=== PATIENT | female | born 1965 | race African-American/Black ===

== ENCOUNTER → 2017-04-28 | Outpatient (CLI) | payer MEDICARE, OTHER ==
--- NOTE | 2017-05-01 12:39 | RAD ---
DATE: 04/28/2017 EXAM: DIGITAL SCREEN BILAT W/CAD HISTORY: Routine screening COMPARISON: 11/17/2014 This study was interpreted with the benefit of Computerized Aided Detection (CAD). The breast parenchyma shows scattered fibroglandular densities. Breast parenchyma level B. FINDINGS: No new or enlarging breast densities are seen. No suspicious microcalcifications are evident. IMPRESSION: Stable mammograms without evidence of malignancy. BI-RADS CATEGORY: 1 NEGATIVE RECOMMENDED FOLLOW-UP: 12M 12 MONTH FOLLOW-UP PQRS compliance statement: Patient information was entered into a reminder system with a target due date for the next mammogram. Mammography is a sensitive method for finding small breast cancers, but it does not detect them all and is not a substitute for careful clinical examination. A negative mammogram does not negate a clinically suspicious finding and should not result in delay in biopsying a clinically suspicious abnormality. "Our facility is accredited by the [employer] Mammography [employer]."
== END | disposition home or self-care (01) ==
LOC: MAMMO 07:39
PROVIDERS: ATTEND Family Medicine
DX: Z12.31 Encounter for screening mammogram for malignant neoplasm of breast (principal)
CPT/HCPCS: G0202; 77067

== ENCOUNTER 2017-09-12 10:36 | Emergency (ER) | payer MEDICARE, OTHER | END 2017-09-12 11:26 | disposition home or self-care (01) | LOC: ER 10:36 | DX: J20.9 Acute bronchitis, unspecified (principal); F17.200 Nicotine dependence, unspecified, uncomplicated | CPT/HCPCS: 99283 ==

== ENCOUNTER 2018-01-24 17:29 | Emergency (ER) | payer MEDICARE, OTHER ==
[2018-01-24] MEDS: diphenhydrAMINE HCL 25 MG CAPSULE PO (18:26)
== END 2018-01-24 18:27 | disposition home or self-care (01) ==
LOC: ER 17:29
DX: R21 Rash and other nonspecific skin eruption (principal); K21.9 Gastro-esophageal reflux disease without esophagitis
CPT/HCPCS: 99283; Q0163

== ENCOUNTER → 2018-12-13 | Outpatient (CLI) | payer MEDICARE, OTHER ==
[2018-01-24 17:39] VITALS: BP 116/70
[~2018-12-13] MED LIST: AZIT250T6 PO; BENZ100C PO; METH4TAB2 PO; PRED-220 PO
--- NOTE | 2018-12-13 09:35 | RAD ---
DATE: 12/13/2018 EXAM: DIGITAL SCREEN BILAT W/CAD HISTORY: Routine screening COMPARISON: 04/28/2017 This study was interpreted with the benefit of Computerized Aided Detection (CAD). Breast Density: SCATTERED The breast parenchyma shows scattered fibroglandular densities. Breast parenchyma level B. FINDINGS: No mass or suspicious microcalcifications are evident. IMPRESSION: Stable mammograms without evidence of malignancy. BI-RADS CATEGORY: 1 NEGATIVE RECOMMENDED FOLLOW-UP: 12M 12 MONTH FOLLOW-UP PQRS compliance statement: Patient information was entered into a reminder system with a target due date for the next mammogram. Mammography is a sensitive method for finding small breast cancers, but it does not detect them all and is not a substitute for careful clinical examination. A negative mammogram does not negate a clinically suspicious finding and should not result in delay in biopsying a clinically suspicious abnormality. "Our facility is accredited by the [employer] Mammography [employer]."
== END | disposition home or self-care (01) ==
LOC: MAMMO 08:04
PROVIDERS: ATTEND Family Medicine
DX: Z12.31 Encounter for screening mammogram for malignant neoplasm of breast (principal)
CPT/HCPCS: 77067

== ENCOUNTER 2019-02-16 23:29 | Emergency (ER) | payer OTHER ==
[~2019-02-16] VITALS: Ht 149.9 cm; Wt 58.1 kg
[2019-02-17] VITALS: BP 128/96
[2019-02-17] MEDS ORDERED: METH4TAB2 PO (00:32)
--- NOTE | 2019-02-17 00:33 | PHYS DOC ---
Past Medical History Past Medical History: GERD, Other Additional Past Medical Histor: "bowel problem" "Problem with my thyroid" Past Surgical History: Hysterectomy, Tubal ligation Alcohol Use: None Drug Use: None Adult General Chief Complaint Chief Complaint: SORE THROAT HPI HPI Patient is a 53 year old AA female who presents to the emergency Department today with complaints of sore throat, frequent throat clearing, pressure in her ears, dry cough, and nasal congestion for the last 3 or 4 days. Patient denies any fever, abdominal pain, nausea, vomiting, diarrhea, chest pain, shortness of breath, or wheezing. She states that she usually experiences symptoms similar to this one or 2 times a year. She currently rates her pain a 5 out of 10 on the pain scale and describes it as pressure, there are no alleviating or exacerbating factors. Review of Systems Review of Systems Constitutional: Denies fever or chills [] Eyes: Denies change in visual acuity, redness, or eye pain [] HENT: See history of present illness Respiratory: Denies wheezing or shortness of breath; reports dry cough[] Cardiovascular: No additional information not addressed in HPI [] GI: Denies abdominal pain, nausea, vomiting, or diarrhea [] Musculoskeletal: Denies back pain or joint pain [] Integument: Denies rash or skin lesions [] Neurologic: Denies headache, focal weakness or sensory changes [] Complete systems were reviewed and found to be within normal limits, except as documented in this note. Allergies Allergies Allergies Coded Allergies Type Severity Reaction Last Updated Verified No Known Drug Allergies 01/24/18 No Physical Exam Physical Exam Constitutional: Well developed, well nourished, no acute distress, non-toxic appearance. [] HENT: Normocephalic, atraumatic, bilateral external ears normal, cobblestone appearance of posterior pharynx, oropharynx moist, no oral exudates, nasal turbinates edematous and erythematous, no maxillary or frontal sinus tenderness to palpation Eyes: PERRLA, conjunctiva normal, no discharge. [] Neck: Normal range of motion, no tenderness, supple, no stridor. [] Cardiovascular:Heart rate regular rhythm, no murmur [] Lungs & Thorax: Bilateral breath sounds clear to auscultation [] Skin: Warm, dry, no erythema, no rash. [] Extremities: No cyanosis, ROM intact, Neurologic: Alert and oriented X 3, no focal deficits noted. [] Psychologic: Affect normal, judgement normal, mood normal. [] Current Patient Data Vital Signs Vital Signs Date Time Temp Pulse Resp B/P (MAP) Pulse Ox O2 Delivery O2 Flow Rate FiO2 02/17/19 00:00 98.3 63 16 128/96 (107) 100 Room Air 98.3 EKG EKG [] Radiology/Procedures Radiology/Procedures [] Course & Med Decision Making Course & Med Decision Making Pertinent Labs and Imaging studies reviewed. (See chart for details) dx: Allergic rhinitis, pharyngitis Prescription for Medrol Dosepak. Patient encouraged to take a daily Claritin, Zyrtec, or Megan. Encouraged patient to stop smoking. Avoid exposure to airway irritants. Increase clear fluids. Follow-up with your primary care doctor if symptoms persist, return to the ER if symptoms worsen. Recommend warm salt water gargles as needed for throat discomfort. Also may take Tylenol or ibuprofen as needed for pain. Patient verbalized an understanding of home care, medications, follow-up, and return to ED instructions and was in agreement with the plan of care. [] Dragon Disclaimer Dragon Disclaimer This electronic medical record was generated, in whole or in part, using a voice recognition dictation system. Departure Departure Impression: Primary Impression: Allergic rhinitis Additional Impression: Pharyngitis Disposition: 01 HOME, SELF-CARE Condition: STABLE Referrals: GUILLERMO BONNER MD (PCP) Patient Instructions: Allergic Rhinitis Additional Instructions: Fill prescription(s) and use as directed. Tylenol or ibuprofen prn pain/fever. Warm salt water gargles as needed for throat discomfort. Increase clear fluids. Recommend he take a daily Megan, Claritin, or Zyrtec to help with your symptoms.Avoid triggers such as smoke, fragrance, dust, and pollen. Stop smoking. Follow-up with your primary care doctor if symptoms persist, return to the ER if symptoms worsen. Scripts Methylprednisolone (MEDROL) 4 Mg Tab.ds.pk 1 PKG PO UD, #1 PKG 0 Refills Prov: ODETTE LEIGH Sue [employer] 02/17/19 Problem Qualifiers Primary Impression: Allergic rhinitis Allergic rhinitis trigger: unspecified Allergic rhinitis seasonality: unspecified Qualified Codes: J30.9 - Allergic rhinitis, unspecified Additional Impression: Pharyngitis Pharyngitis/tonsillitis etiology: unspecified etiology Qualified Codes: J02.9 - Acute pharyngitis, unspecified ODETTE LEIGH [employer] Feb 17, 2019 00:32
== END 2019-02-17 01:20 | disposition home or self-care (01) ==
LOC: ER 23:29
DX: J30.9 Allergic rhinitis, unspecified (principal); J02.9 Acute pharyngitis, unspecified; K21.9 Gastro-esophageal reflux disease without esophagitis
CPT/HCPCS: 99283

== ENCOUNTER 2019-06-01 17:44 | Emergency (ER) | payer OTHER ==
[~2019-06-01] VITALS: Ht 149.9 cm; Wt 58.1 kg
[2019-06-01 17:55] VITALS: BP 138/84
--- NOTE | 2019-06-01 18:07 | PHYS DOC ---
Past Medical History Past Medical History: GERD, UTI, Other Additional Past Medical Histor: "bowel problem" "Problem with my thyroid" (EBENEZER AGUAYO APRN) Past Surgical History: Hysterectomy, Tubal ligation (EBENEZER AGUAYO APRN) Alcohol Use: None Drug Use: None (EBENEZER AGUAYO APRN) Attending Signature I have participated in the care of this patient and I have reviewed and agree with all pertinent clinical information above including history, exam, and recommendations. (MARIA EUGENIA KEMP MD) Adult General Chief Complaint Chief Complaint: PAIN ON URINATION HPI HPI Patient is a 53 year old female who presents with dysuria that began 4 days ago. Patient is also complaining of foul odor vaginal discharge but states she is not concerned about STDs and does not want a pelvic. Denies any fever, nausea, vomiting. (EBENEZER AGUAYO APRN) Review of Systems Review of Systems Constitutional: Denies fever or chills [] Eyes: Denies change in visual acuity, redness, or eye pain [] HENT: Denies nasal congestion or sore throat [] Respiratory: Denies cough or shortness of breath [] Cardiovascular: No additional information not addressed in HPI [] GI: Denies abdominal pain, nausea, vomiting, bloody stools or diarrhea [] : Reports dysuria and vaginal discharge, denies hematuria [] Musculoskeletal: Denies back pain or joint pain [] Integument: Denies rash or skin lesions [] Neurologic: Denies headache, focal weakness or sensory changes [] All other systems were reviewed and found to be within normal limits, except as documented in this note. (EBENEZER AGUAYO APRN) Allergies Allergies Allergies Coded Allergies Type Severity Reaction Last Updated Verified No Known Drug Allergies 01/24/18 No (MARIA EUGENIA KEMP MD) Physical Exam Physical Exam Constitutional: Well developed, well nourished, no acute distress, non-toxic appearance. [] HENT: Normocephalic, atraumatic, bilateral external ears normal, oropharynx moist, no oral exudates, nose normal. [] Eyes: PERRLA, EOMI, conjunctiva normal, no discharge. [] Neck: Normal range of motion, no tenderness, supple, no stridor. [] Cardiovascular:Heart rate regular rhythm, no murmur [] Lungs & Thorax: Bilateral breath sounds clear to auscultation [] Abdomen: Bowel sounds normal, soft, no tenderness, no masses, no pulsatile mass es. [] Skin: Warm, dry, no erythema, no rash. [] Back: No tenderness, no CVA tenderness. [] Extremities: No tenderness, no cyanosis, no clubbing, ROM intact, no edema. [] Neurologic: Alert and oriented X 3, normal motor function, normal sensory function, no focal deficits noted. [] Psychologic: Affect normal, judgement normal, mood normal. [] (EBENEZER AGUAYO APRN) Current Patient Data Vital Signs Vital Signs Date Time Temp Pulse Resp B/P (MAP) Pulse Ox O2 Delivery O2 Flow Rate FiO2 06/01/19 17:55 98.3 88 16 138/84 (102) 97 Room Air 98.3 (MARIA EUGENIA KEMP MD) Lab Values Laboratory Tests Test 06/01/19 17:50 Urine Collection Type Unknown Urine Color Yellow Urine Clarity Clear Urine pH 5.0 Urine Specific [place] 1.025 Urine Protein Negative mg/dL (NEG-TRACE) Urine Glucose (UA) Negative mg/dL (NEG) Urine Ketones (Stick) Negative mg/dL (NEG) Urine Blood Moderate (NEG) Urine Nitrite Negative (NEG) Urine Bilirubin Negative (NEG) Urine Urobilinogen Dipstick 1.0 mg/dL (0.2 mg/dL) Urine Leukocyte Esterase Large (NEG) Urine RBC 1-2 /HPF (0-2) Urine WBC 5-10 /HPF (0-4) Urine Squamous Epithelial Cells Many /LPF Urine Bacteria Moderate /HPF (0-FEW) Urine Mucus Marked /LPF (MARIA EUGENIA KEMP MD) Lab Values Laboratory Tests Test 06/01/19 17:50 Urine Collection Type Unknown Urine Color Yellow Urine Clarity Clear Urine pH 5.0 Urine Specific [place] 1.025 Urine Protein Negative mg/dL (NEG-TRACE) Urine Glucose (UA) Negative mg/dL (NEG) Urine Ketones (Stick) Negative mg/dL (NEG) Urine Blood Moderate (NEG) Urine Nitrite Negative (NEG) Urine Bilirubin Negative (NEG) Urine Urobilinogen Dipstick 1.0 mg/dL (0.2 mg/dL) Urine Leukocyte Esterase Large (NEG) Urine RBC 1-2 /HPF (0-2) Urine WBC 5-10 /HPF (0-4) Urine Squamous Epithelial Cells Many /LPF Urine Bacteria Moderate /HPF (0-FEW) Urine Mucus Marked /LPF (EBENEZER AGUAYO APRN) EKG EKG [] (EBENEZER AGUAYO APRN) Radiology/Procedures Radiology/Procedures [] (EBENEZER AGUAYO APRN) Course & Med Decision Making Course & Med Decision Making Pertinent Labs and Imaging studies reviewed. (See chart for details) This is a 53-year-old female patient presenting to the ED today for dysuria and vaginal discharge for 4 days. Patient denies any concerns for STDs and is refusing any pelvic exam. Positive for UTI, discharged on cephalexin. Tylenol/Motrin for pain or fever. Follow-up with PCP in 1-2 weeks. (EBENEZER AGUAYO APRN) Dragon Disclaimer Dragon Disclaimer This electronic medical record was generated, in whole or in part, using a voice recognition dictation system. (EBENEZER AGUAYO APRN) Departure Departure Impression: Primary Impression: Urinary tract infection Disposition: HOME, SELF-CARE Condition: STABLE Referrals: GUILLERMO BONNER MD (PCP) follow up next week Patient Instructions: Urinary Tract Infection Additional Instructions: You have urinary tract infection and we put you on antibiotics, ensure you complete them. Follow-up with your doctor in 1-2 weeks. Scripts Cephalexin (CEPHALEXIN) 500 Mg Tablet 1 TAB PO BID, #14 TAB Prov: EBENEZER AGUAYO APRN 06/01/19 Problem Qualifiers Primary Impression: Urinary tract infection Urinary tract infection type: acute cystitis Hematuria presence: without hematuria Qualified Codes: N30.00 - Acute cystitis without hematuria EBENEZER AGUAYO APRN Jun 01, 2019 18:07 MARIA EUGENIA KEMP MD Jun 01, 2019 23:17
[2019-06-01 18:33] LABS: BILIRUBIN,URINE NEGATIVE (NEG); CLARITY,URINE CLEAR; COLOR,URINE YELLOW; NITRITE,URINE NEGATIVE (NEG); PROTEIN,URINE NEGATIVE (NEG-TRACE)
[2019-06-01 18:42] LABS: BACTERIA,URINE MODERATE /HPF (0-FEW); SQUAMOUS EPITHELIAL CELL,UR MANY /LPF
[2019-06-01] MEDS ORDERED: CEPH500T PO (19:07)
== END 2019-06-01 19:10 | disposition home or self-care (01) ==
LOC: ER 17:44
DX: N30.00 Acute cystitis without hematuria (principal); K21.9 Gastro-esophageal reflux disease without esophagitis; Z90.710 Acquired absence of both cervix and uterus; Z98.51 Tubal ligation status
CPT/HCPCS: 81001; 87086; 99284

== ENCOUNTER → 2019-06-26 | Outpatient (CLI) | payer OTHER ==
[2019-06-01 17:55] VITALS: BP 138/84
[~2019-06-26] MED LIST changes: +CEPH500T PO
--- NOTE | 2019-06-26 15:26 | RAD ---
EXAM: PA, oblique and lateral views left hand DATE: 06/26/2019 12:00 AM INDICATION: Finger pain, hand pain COMPARISON: No Prior FINDINGS: No evidence of acute fracture or dislocation. Joint spaces are preserved without significant degenerative/proliferative change. Ulnar minus variance. IMPRESSION: No evidence of acute fracture or dislocation. Electronically signed by: Keron Saucedo MD (06/26/2019 3:23 PM) [id number]
== END | disposition home or self-care (01) ==
LOC: RAD 14:12
PROVIDERS: ATTEND Nurse Practitioner Gerontology
DX: M79.645 Pain in left finger(s) (principal)
CPT/HCPCS: 73130

== ENCOUNTER 2019-07-22 13:24 | Emergency (ER) | payer OTHER ==
[~2019-07-22] VITALS: Ht 149.9 cm; Wt 57.6 kg
[2019-07-22 14:35] VITALS: BP 145/86
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
[2019-07-22] MEDS ORDERED: DICL50TA2 PO (15:52)
[2019-07-22] MEDS ORDERED: CYCL10TA2 PO (15:52)
== END 2019-07-22 16:17 | disposition home or self-care (01) ==
LOC: ER 13:24
DX: S13.9XXA Sprain of joints and ligaments of unspecified parts of neck, initial encounter (principal); K21.9 Gastro-esophageal reflux disease without esophagitis; Y04.8XXA Assault by other bodily force, initial encounter; Y93.89 Activity, other specified; Y92.89 Other specified places as the place of occurrence of the external cause; Y99.8 Other external cause status
CPT/HCPCS: 72040; 99284

== ENCOUNTER → 2019-07-29 | Outpatient (CLI) | payer OTHER ==
[2019-07-22 14:35] VITALS: BP 145/86
[~2019-07-29] MED LIST changes: +CYCL10TA2 PO; +DICL50TA2 PO
--- NOTE | 2019-07-29 10:52 | RAD ---
MR of the fifth finger HISTORY: Pain of the distal phalanx of the left fifth digit for 2 years. No known injury. TECHNIQUE: Routine multiplanar sequences are obtained through the fifth digit. FINDINGS: Small soft tissue nodule at the distal fifth finger, located anterolateral to the shaft of the distal phalanx, and just deep to the lateral edge of the nailbed. Measures 3 mm x 2 mm x 3 mm. No surrounding soft tissue edema. No other soft tissue mass or fluid collection is seen. No acute fracture, marrow edema or aggressive bone destruction. The flexor and extensor tendons structures are intact. No significant joint effusion. IMPRESSION: Small subungual mass at the lateral fifth finger. Glomus tumor is a likely possibility. Hemangioma, epidermoid cyst or giant cell tumor could also be considered. Electronically signed by: Cedric Strange MD (07/29/2019 10:49 AM) [id number]
== END | disposition home or self-care (01) ==
LOC: MRI 08:44
PROVIDERS: ATTEND Nurse Practitioner Gerontology
DX: M25.842 Other specified joint disorders, left hand (principal); R22.32 Localized swelling, mass and lump, left upper limb
CPT/HCPCS: 73218

== ENCOUNTER 2019-12-20 15:43 | Emergency (ER) | payer OTHER ==
[~2019-12-20] VITALS: Ht 149.9 cm; Wt 56.8 kg
[2019-12-20 15:58] VITALS: BP 128/69
--- NOTE | 2019-12-20 16:01 | PHYS DOC ---
Past Medical History Past Medical History: GERD, UTI, Other Additional Past Medical Histor: "bowel problem" "Problem with my thyroid" Past Surgical History: Hysterectomy, Tubal ligation Smoking Status: Current Every Day Smoker Alcohol Use: None Drug Use: None General Adult EDM: Chief Complaint: ANKLE PROBLEM HPI: HPI: Patient is a 54 year old female who presents with states she missed the last couple of her stairs and twisted her ankle and also hurt her lateral left lower leg. Patient complains of left lateral ankle pain and left lower lateral leg pain. Patient states is throbbing and sharp in nature. States when she tries to walk she feels a clicking. Patient rates her pain a 6 out of 10. She states she has oxycodone at home that she took before she came. Patient is given ice in the leg is elevated. Review of Systems: Review of Systems: Musculoskeletal: Denies back pain or left lateral lower leg and ankle joint pain. [] Heart Score: Risk Factors: Risk Factors: DM, Current or recent (<one month) smoker, HTN, HLP, family history of CAD, obesity. Risk Scores: Score 0 - 3: 2.5% MACE over next 6 weeks - Discharge Home Score 4 - 6: 20.3% MACE over next 6 weeks - Admit for Clinical Observation Score 7 - 10: 72.7% MACE over next 6 weeks - Early Invasive Strategies Allergies: Allergies: Allergies Coded Allergies Type Severity Reaction Last Updated Verified No Known Drug Allergies 01/24/18 No Physical Exam: PE: Constitutional: Well developed, well nourished, no acute distress, non-toxic appearance. [] HENT: Normocephalic, atraumatic, bilateral external ears normal, oropharynx moist, no oral exudates, nose normal. [] Eyes: PERRLA, EOMI, conjunctiva normal, no discharge. [] Neck: Normal range of motion, no tenderness, supple, no stridor. [] Cardiovascular:Heart rate regular rhythm, no murmur [] Lungs & Thorax: Bilateral breath sounds clear to auscultation [] Abdomen: Bowel sounds normal, soft, no tenderness, no masses, no pulsatile mass es. [] Skin: Warm, dry, no erythema, no rash. [] Back: No tenderness, no CVA tenderness. [] Extremities: Left lateral lower leg and lateral ankle tenderness, no cyanosis, no clubbing, 2+ left lateral ankle swelling and limited ROM, no edema. [] Neurologic: Alert and oriented X 3, normal motor function, normal sensory function, no focal deficits noted. [] Psychologic: Affect normal, judgement normal, mood normal. [] EKG: EKG: [] Radiology/Procedures: Radiology/Procedures: [] Impression: [facility] [address] [place], [place] [id number] IMAGING REPORT Signed PATIENT: LAISHA HENDRICKSONOUNT: [id number] : 1965 LOCATION: ER AGE: 54 SEX: F EXAM STATUS: REG ER ORD. PHYSICIAN: GUS POOLE APRN REASON: fall down stairs, swelling PROCEDURE: TIBIA FIBULA LEFT Study: 1. CR ANKLE LEFT 3V 2. CR TIBIA FIBULA LEFT Indication: Fall down the stairs. Swelling. Comparison: None. Findings: Obliquely oriented Ivey type B distal fibula fracture with minimal displacement. The more proximal fibula is intact. The tibia is intact. The ankle mortise is symmetric and the talar dome intact. No acute fracture seen throughout the visualized foot. Tiny plantar calcaneal spur and enthesophyte at the Achilles tendon insertion. Mild degenerative changes at the knee. Lateral ankle soft tissue swelling and an ankle joint effusion. Impression: Minimally displaced Ivey type B distal fibula fracture. No fracture seen elsewhere. Ankle alignment is maintained noting the absence of weightbearing. Electronically signed by: SALLY VENTURA MD (12/20/2019 4:28 PM) [id number] DICTATED and SIGNED BY: SALLY VENTURA MD DATE: 12/20/19 1628 Course & Med Decision Making: Course & Med Decision Making Pertinent Labs and Imaging studies reviewed. (See chart for details) Denies numbness or tingling. Skin pink warm and dry. Left lateral ankle 2+ swelling with some bruising. The foot is nontender and nonswollen. Patient can wiggle her toes. Pedal pulses are present. No deformity is seen. No laxity in the joint. Tenderness to the left lateral lower leg to approximately retirement up the leg. No deformity or swelling or bruising is seen. Patient is full range of motion of her knee and there is no swelling or bruising or deformity. Patient is placed in a posterior and stirrup splint. She is to follow up with orthopedics. Splint assessment: Neurovascularly intact post splint replacement with good fit. Patient's extremity symptoms have stabilized well they have been evaluated in the department and are appropriate for outpatient follow-up. No evidence of compartment syndrome, neurologic injury, vascular injury, open joint, open fracture, tendon laceration, or foreign body. [] Dragon Disclaimer: Dragon Disclaimer: This electronic medical record was generated, in whole or in part, using a voice recognition dictation system. Departure Departure Impression: Primary Impression: Fibula fracture Qualified Codes: S82.832A - Other fracture of upper and lower end of left fibula, initial encounter for closed fracture Disposition: 01 HOME, SELF-CARE Condition: STABLE Referrals: SKYLAR SIMMS APRN (PCP) DEIDRE MISHRA MD Patient Instructions: Fibular Fracture, Ankle, Adult, Treated with or without Immobilization Additional Instructions: Follow up with orthopedics in the next 1-2 weeks. Keep splint on and take the pain medication that you have at home. Use ice and elevation to help with pain and swelling. GUS POOLE APRN December 20, 2019 16:01
--- NOTE | 2019-12-20 16:31 | RAD ---
Study: 1. CR ANKLE LEFT 3V 2. CR TIBIA FIBULA LEFT Indication: Fall down the stairs. Swelling. Comparison: None. Findings: Obliquely oriented Ivey type B distal fibula fracture with minimal displacement. The more proximal fibula is intact. The tibia is intact. The ankle mortise is symmetric and the talar dome intact. No acute fracture seen throughout the visualized foot. Tiny plantar calcaneal spur and enthesophyte at the Achilles tendon insertion. Mild degenerative changes at the knee. Lateral ankle soft tissue swelling and an ankle joint effusion. Impression: Minimally displaced Ivey type B distal fibula fracture. No fracture seen elsewhere. Ankle alignment is maintained noting the absence of weightbearing. Electronically signed by: SALLY VENTURA MD (12/20/2019 4:28 PM) [id number]
== END 2019-12-20 17:09 | disposition home or self-care (01) ==
LOC: ER 15:43
DX: S82.832A Other fracture of upper and lower end of left fibula, initial encounter for closed fracture (principal); K21.9 Gastro-esophageal reflux disease without esophagitis; F17.200 Nicotine dependence, unspecified, uncomplicated; W10.8XXA Fall (on) (from) other stairs and steps, initial encounter; Y93.89 Activity, other specified; Y92.89 Other specified places as the place of occurrence of the external cause; Y99.8 Other external cause status
CPT/HCPCS: 29515; 73590; 73610; 99284

== ENCOUNTER 2020-01-26 04:57 | Emergency (ER) | payer OTHER ==
[~2020-01-26] VITALS: Ht 149.9 cm; Wt 55.5 kg
--- NOTE | 2020-01-26 05:52 | PHYS DOC ---
Past Medical History Past Medical History: Hypothyroid, Other Additional Past Medical Histor: "bowel problem" "Problem with my thyroid" Past Surgical History: Hysterectomy, Tubal ligation Smoking Status: Current Every Day Smoker Additional Information: PACK A DAY Alcohol Use: Rarely Drug Use: None General Adult EDM: Chief Complaint: KNEE INJURY HPI: HPI: Patient is a 54 year old female presents with the chief complaint of left knee pain. Patient reports falling 3 days ago. Pain located along patella. Patient denies any other injuries. Review of Systems: Review of Systems: Constitutional: Denies fever or chills. [] Eyes: Denies change in visual acuity. [] HENT: Denies nasal congestion or sore throat. [] Respiratory: Denies cough or shortness of breath. [] Cardiovascular: Denies chest pain or edema. [] GI: Denies abdominal pain, nausea, vomiting, bloody stools or diarrhea. [] : Denies dysuria. [] Musculoskeletal: Denies back pain or joint pain. [Positive knee pain] Integument: Denies rash. [] Neurologic: Denies headache, focal weakness or sensory changes. [] Endocrine: Denies polyuria or polydipsia. [] Lymphatic: Denies swollen glands. [] Psychiatric: Denies depression or anxiety. [] Heart Score: Risk Factors: Risk Factors: DM, Current or recent (<one month) smoker, HTN, HLP, family his tory of CAD, obesity. Risk Scores: Score 0 - 3: 2.5% MACE over next 6 weeks - Discharge Home Score 4 - 6: 20.3% MACE over next 6 weeks - Admit for Clinical Observation Score 7 - 10: 72.7% MACE over next 6 weeks - Early Invasive Strategies Allergies: Allergies: Allergies Coded Allergies Type Severity Reaction Last Updated Verified No Known Drug Allergies 01/24/18 No Physical Exam: PE: Constitutional: Well developed, well nourished, no acute distress, non-toxic appearance. [] HENT: Normocephalic, atraumatic, bilateral external ears normal, oropharynx moist, no oral exudates, nose normal. [] Eyes: PERRLA, EOMI, conjunctiva normal, no discharge. [] Neck: Normal range of motion, no tenderness, supple, no stridor. [] Cardiovascular:Heart rate regular rhythm, no murmur [] Lungs & Thorax: Bilateral breath sounds clear to auscultation [] Abdomen: Bowel sounds normal, soft, no tenderness, no masses, no pulsatile masses. [] Skin: Warm, dry, no erythema, no rash. [] Back: No tenderness, no CVA tenderness. [] Extremities: left knee- tender to palpation along patella, decreased rom due to pain Neurologic: Alert and oriented X 3, normal motor function, normal sensory f unction, no focal deficits noted. [] Psychologic: Affect normal, judgement normal, mood normal. [] Current Patient Data: Vital Signs: Vital Signs Date Time Temp Pulse Resp B/P (MAP) Pulse Ox O2 Delivery O2 Flow Rate FiO2 01/26/20 05:04 98.2 69 16 125/60 (81) 100 Room Air 98.2 EKG: EKG: [] Radiology/Procedures: Radiology/Procedures: [] Impression: Xray wet read negative for acute fracture Course & Med Decision Making: Course & Med Decision Making Pertinent Labs and Imaging studies reviewed. (See chart for details) [] Dragon Disclaimer: Dragon Disclaimer: This electronic medical record was generated, in whole or in part, using a voice recognition dictation system. Departure Departure Impression: Primary Impression: Knee pain Disposition: HOME, SELF-CARE Condition: STABLE Referrals: NON,STAFF (PCP) Patient Instructions: Knee Pain Justicifation of Admission Dx: Justifications for Admission: Justification of Admission Dx: N/A IVY WATT DO Jan 26, 2020 05:52
[2020-01-26 06:08] VITALS: BP 125/32
--- NOTE | 2020-01-26 06:11 | RAD ---
Left knee 3 views. HISTORY: Pain 3 views were taken left knee. There is joint space narrowing in the lateral joint compartment. There is hypertrophic spurring. There is no acute fracture. There is a small joint effusion. There is mild spurring on the patella. IMPRESSION: 1. Arthritis left knee. 2. Joint space narrowing in the lateral joint compartment. Electronically signed by: Martin Blanca MD (01/26/2020 6:08 AM) [id number]
== END 2020-01-26 06:06 | disposition home or self-care (01) ==
LOC: ER 04:57
DX: M25.562 Pain in left knee (principal); E03.9 Hypothyroidism, unspecified; F17.200 Nicotine dependence, unspecified, uncomplicated; Z98.51 Tubal ligation status; Z90.710 Acquired absence of both cervix and uterus
CPT/HCPCS: 73562; 99284

== ENCOUNTER 2020-02-08 16:58 | Emergency (ER) | payer OTHER ==
[~2020-02-08] VITALS: Ht 149.9 cm; Wt 56.8 kg
[2020-02-08] MEDS ORDERED: DIPH,PERTUSS(ACELL),TET VAC/PF 0.5 ML SYRINGE. VAX IM ONE ×2 (18:34→19:00)
[2020-02-08 18:37] VITALS: BP 117/63
[2020-02-08] MEDS ORDERED: LIDOCAINE 1% PF 2 ML VIAL. INJ ONE (18:45)
--- NOTE | 2020-02-08 19:13 | PHYS DOC ---
Past Medical History Past Medical History: Hypothyroid, Other Additional Past Medical Histor: "bowel problem" "Problem with my thyroid" Past Surgical History: Hysterectomy, Tubal ligation Smoking Status: Current Every Day Smoker Alcohol Use: None Drug Use: None General Adult EDM: Chief Complaint: LACERATION/AVULSION HPI: HPI: 54-year-old female presents for evaluation of laceration over left palmar surface just inferior to the fifth digit. Laceration is approximately 1 cm in length. Patient was cutting lettuce when she accidentally cut her left hand. On exam minimal bleeding no foreign body identified. Patient's tetanus is not up-to-date. Review of Systems: Review of Systems: Integument laceration left palmar surface 1 cm in length no tendons no foreign body identified Heart Score: Risk Factors: Risk Factors: DM, Current or recent (<one month) smoker, HTN, HLP, family history of CAD, obesity. Risk Scores: Score 0 - 3: 2.5% MACE over next 6 weeks - Discharge Home Score 4 - 6: 20.3% MACE over next 6 weeks - Admit for Clinical Observation Score 7 - 10: 72.7% MACE over next 6 weeks - Early Invasive Strategies Current Medications: Current Medications Medications (Trade) Dose Ordered Sig/Elidia Start Time Stop Time Status Last Admin Dose Admin Diphtheria/ Tetanus/Acell Pertussis (ADACEL TDap SYRINGE) 0.5 ml ONCE ONCE 02/08/20 19:00 02/08/20 19:01 DC 02/08/20 18:54 0.5 ML Lidocaine HCl (Xylocaine-Mpf 1% 2ml Vial) 2 ml 1X ONCE 02/08/20 18:45 02/08/20 18:46 DC 02/08/20 18:53 2 ML Allergies: Allergies: Allergies Coded Allergies Type Severity Reaction Last Updated Verified No Known Drug Allergies 01/24/18 No Physical Exam: PE: Integument laceration left palmar surface 1 cm in length no tendons no foreign body identified Current Patient Data: Vital Signs: Vital Signs Date Time Temp Pulse Resp B/P (MAP) Pulse Ox O2 Delivery O2 Flow Rate FiO2 02/08/20 18:37 98.8 61 16 117/63 (81) 98 Room Air 98.8 EKG: EKG: [] Radiology/Procedures: Radiology/Procedures: [] Course & Med Decision Making: Course & Med Decision Making Pertinent Labs and Imaging studies reviewed. (See chart for details) [] Wound was cleaned with Betadine. Local anesthesia lidocaine 1% approximately 2 cc used. Once wound was cleaned it was explored no foreign bodies identified no tendon involvement. Wound was repaired with six-point 0 nylon 3 sutures simple interrupted placed. Patient without any complications. Wound was bandaged by nursing. Dragon Disclaimer: Dragon Disclaimer: This electronic medical record was generated, in whole or in part, using a voice recognition dictation system. Departure Departure Impression: Primary Impression: Laceration Disposition: HOME, SELF-CARE Condition: STABLE Referrals: ADILENE GONZALEZ MD (PCP) Patient Instructions: Laceration Care, Adult Additional Instructions: Sutures out in 5-7 days. Justicifation of Admission Dx: Justifications for Admission: Justification of Admission Dx: N/A IVY WATT DO Feb 08, 2020 19:13
== END 2020-02-08 19:31 | disposition home or self-care (01) ==
LOC: ER 16:58
DX: S61.412A Laceration without foreign body of left hand, initial encounter (principal); E03.9 Hypothyroidism, unspecified; F17.200 Nicotine dependence, unspecified, uncomplicated; Z90.710 Acquired absence of both cervix and uterus; Z98.51 Tubal ligation status; W26.8XXA Contact with other sharp object(s), not elsewhere classified, initial encounter; Y93.89 Activity, other specified; Y92.89 Other specified places as the place of occurrence of the external cause; Y99.8 Other external cause status
CPT/HCPCS: 12001; 90471; 90715; 99283; J3490

== ENCOUNTER → 2020-02-13 | Outpatient (CLI) | payer OTHER ==
[2020-02-08 18:37] VITALS: BP 117/63
--- NOTE | 2020-02-13 12:25 | RAD ---
INDICATION: 54 years of age asymptomatic female patient presents for screening mammography. TECHNIQUE: Full field craniocaudal and mediolateral oblique images of both breasts were obtained using digital technique with tomosynthesis and also analyzed with computer-aided detection software. COMPARISON: Prior mammographic imaging 11/17/2014, 04/28/2017, 12/13/2018. BREAST COMPOSITION: Category B: There are scattered fibroglandular densities. FINDINGS: The parenchymal pattern appears stable. No suspicious masses, microcalcifications or architectural distortion is present to suggest malignancy in either breast. The visualized axillae are unremarkable. IMPRESSION: No mammographic evidence of malignancy. RECOMMENDATION: Annual screening mammography is recommended, unless clinically indicated sooner based on symptoms or change in physical exam. BIRADS 1: NEGATIVE This study was interpreted with the benefit of Computerized Aided Detection (CAD). Patient information is entered into the reminder system with a target due date for the next screening mammogram. Mammography is the most sensitive method for finding small breast cancers, but it does not detect them all and is not a substitute for careful clinical examination. A negative mammogram does not negate a clinically suspicious finding and should not result in delay in biopsying a clinically suspicious abnormality. "Our facility is accredited by the [employer] Mammography Program." Electronically signed by: Keron Saucedo MD (02/13/2020 12:22 PM) [email or web address]
== END | disposition home or self-care (01) ==
LOC: MAMMO 07:33
PROVIDERS: ATTEND Family Medicine
DX: Z12.31 Encounter for screening mammogram for malignant neoplasm of breast (principal)
CPT/HCPCS: 77067

== ENCOUNTER 2020-02-15 06:59 | Emergency (ER) | payer OTHER ==
[~2020-02-15] VITALS: Ht 149.9 cm; Wt 60.0 kg
[2020-02-15 07:37] VITALS: BP 124/64
--- NOTE | 2020-02-15 07:54 | PHYS DOC ---
Past Medical History Past Medical History: Hypothyroid, Other Additional Past Medical Histor: "bowel problem" "Problem with my thyroid" Past Surgical History: Hysterectomy, Tubal ligation Smoking Status: Current Every Day Smoker Alcohol Use: None Drug Use: None General Adult EDM: Chief Complaint: SUTURE/STAPLE REMOVAL HPI: HPI: Patient is a 54-year-old female who presents today for suture removal. She lacerated her left palm 1 week ago and had 3 sutures placed. The wound appears to be healing nicely there is been no pain no surrounding redness or no drainage from the wound. [] Review of Systems: Review of Systems: Constitutional: Denies fever or chills. [] Musculoskeletal: Denies back pain or joint pain. [] Integument: Per HPI [] Heart Score: Risk Factors: Risk Factors: DM, Current or recent (<one month) smoker, HTN, HLP, family history of CAD, obesity. Risk Scores: Score 0 - 3: 2.5% MACE over next 6 weeks - Discharge Home Score 4 - 6: 20.3% MACE over next 6 weeks - Admit for Clinical Observation Score 7 - 10: 72.7% MACE over next 6 weeks - Early Invasive Strategies Allergies: Allergies: Allergies Coded Allergies Type Severity Reaction Last Updated Verified No Known Drug Allergies 01/24/18 No Physical Exam: PE: Constitutional: Well developed, well nourished, no acute distress, non-toxic appearance. [] HENT: Normocephalic, atraumatic, bilateral external ears normal, oropharynx moist, no oral exudates, nose normal. [] Skin: Healing wound left hand with no sutures visible. [] Back: No tenderness, no CVA tenderness. [] Extremities: No tenderness, no cyanosis, no clubbing, ROM intact, no edema. [] Current Patient Data: Vital Signs: Vital Signs Date Time Temp Pulse Resp B/P (MAP) Pulse Ox O2 Delivery O2 Flow Rate FiO2 02/15/20 07:37 97.6 67 18 124/64 (84) 100 Room Air 97.6 EKG: EKG: [] Radiology/Procedures: Radiology/Procedures: [] Course & Med Decision Making: Course & Med Decision Making Pertinent Labs and Imaging studies reviewed. (See chart for details) [Suture removal: It appears that the sutures had come out on their own] [employer] Disclaimer: [employer] Disclaimer: This electronic medical record was generated, in whole or in part, using a voice recognition dictation system. Departure Departure Impression: Primary Impression: Visit for suture removal Disposition: HOME, SELF-CARE Condition: IMPROVED Referrals: ADILENE GONZALEZ MD (PCP) Patient Instructions: Suture Removal Additional Instructions: Return to the emergency department with any new or concerning symptoms Justicifation of Admission Dx: Justifications for Admission: Justification of Admission Dx: No MANA LONG DO Feb 15, 2020 07:54
== END 2020-02-15 08:02 | disposition home or self-care (01) ==
LOC: ER 06:59
DX: S61.412D Laceration without foreign body of left hand, subsequent encounter (principal); E03.9 Hypothyroidism, unspecified; F17.200 Nicotine dependence, unspecified, uncomplicated; Z90.710 Acquired absence of both cervix and uterus; Z98.51 Tubal ligation status; X58.XXXD Exposure to other specified factors, subsequent encounter
CPT/HCPCS: 99281

== ENCOUNTER 2020-06-22 18:42 | Emergency (ER) | payer OTHER ==
[~2020-06-22] VITALS: Ht 149.9 cm; Wt 58.2 kg
[2020-06-22 19:35] LABS: BILIRUBIN,URINE NEGATIVE (NEG); CLARITY,URINE CLEAR; COLOR,URINE YELLOW; NITRITE,URINE NEGATIVE (NEG); PH,URINE 5.5 (<5.0-8.0); PROTEIN,URINE NEGATIVE (NEG-TRACE); UROBILINOGEN,URINE 0.2 mg/dL (0.2 mg/dL)
[2020-06-22 19:40] LABS: BASO # 0.1 x10^3/uL (0.0-0.2); BASO % 1 % (0-3); EOS # 0.1 x10^3/uL (0.0-0.7); EOS % 2 % (0-3); HEMOGLOBIN 12.8 g/dL (12.0-15.5); LYMPH # 2.9 x10^3/uL (1.0-4.8); LYMPH % 41 % (24-48); MEAN CORPUSCULAR HEMOGLOBIN 27 pg (25-35); MEAN CORPUSCULAR HGB CONC 33 g/dL (31-37); MEAN CORPUSCULAR VOLUME 82 fL (79-100); MONO # 0.6 x10^3/uL (0.0-1.1); MONO % 8 % (0-9); NEUT # 3.5 x10^3/uL (1.8-7.7); NEUT % 49 % (31-73); PLATELET COUNT 287 x10^3/uL (140-400); RED BLOOD COUNT 4.74 x10^6/uL (3.50-5.40); RED CELL DISTRIBUTION WIDTH 14.3 % (11.5-14.5); WHITE BLOOD COUNT 7.1 x10^3/uL (4.0-11.0)
[2020-06-22 19:48] LABS: CALCIUM 8.8 mg/dL (8.5-10.1); CREATININE 0.8 mg/dL (0.6-1.0); GFR 89.8; POTASSIUM 3.5 mmol/L (3.5-5.1)
[2020-06-22 19:49] LABS: AMPHETAMINE/METHAMPHETAMINE NEG (NEG); BACTERIA,URINE FEW /HPF (0-FEW); BARBITURATES NEG (NEG); BENZODIAZEPINES NEG (NEG); CANNABINOIDS NEG (NEG); COCAINE NEG (NEG); METHADONE NEG (NEG); OPIATES POS (NEG); PHENCYCLIDINE NEG (NEG)
[2020-06-22 19:52] LABS: ALBUMIN 3.7 g/dL (3.4-5.0); TOTAL BILIRUBIN 0.3 mg/dL (0.2-1.0); TOTAL PROTEIN 7.4 g/dL (6.4-8.2)
--- NOTE | 2020-06-22 20:09 | PHYS DOC ---
Past Medical History Past Medical History: GERD, Hypothyroid, Other Additional Past Medical Histor: "bowel problem" "Problem with my thyroid" Past Surgical History: Hysterectomy, Tubal ligation Additional Past Surgical Histo: THYROID SURGERY Smoking Status: Current Every Day Smoker Alcohol Use: None Drug Use: None General Adult EDM: Chief Complaint: ABDOMINAL PAIN HPI: HPI: Patient is a 54 year old female with history of constipation presenting to the ED today complaining of 10 out of 10 generalized sharp abdominal pain worse when she changes positions as well as takes a deep breath, symptoms for 4 days. Denies anything relieving the symptoms. She states she was constipated for 4 days and had a tea laxative yesterday and had some bowel movement. She is also reporting nausea with no vomiting. Denies any fever. Denies any diarrhea. Review of Systems: Review of Systems: Constitutional: Denies fever or chills. [] Eyes: Denies change in visual acuity. [] HENT: Denies nasal congestion or sore throat. [] Respiratory: Denies cough or shortness of breath. [] Cardiovascular: Denies chest pain or edema. [] GI: Reports abdominal pain with nausea, reports constipation, denies any vomiting, bloody stools or diarrhea. [] : Denies dysuria. [] Musculoskeletal: Denies back pain or joint pain. [] Integument: Denies rash. [] Neurologic: Denies headache, focal weakness or sensory changes. [] Endocrine: Denies polyuria or polydipsia. [] Lymphatic: Denies swollen glands. [] Psychiatric: Denies depression or anxiety. [] Heart Score: Risk Factors: Risk Factors: DM, Current or recent (<one month) smoker, HTN, HLP, family history of CAD, obesity. Risk Scores: Score 0 - 3: 2.5% MACE over next 6 weeks - Discharge Home Score 4 - 6: 20.3% MACE over next 6 weeks - Admit for Clinical Observation Score 7 - 10: 72.7% MACE over next 6 weeks - Early Invasive Strategies Allergies: Allergies: Allergies Coded Allergies Type Severity Reaction Last Updated Verified acetaminophen Allergy Intermediate 06/22/20 Yes propoxyphene Allergy Intermediate 06/22/20 Yes Physical Exam: PE: Constitutional: Well developed, well nourished, no acute distress, non-toxic appearance. [] HENT: Normocephalic, atraumatic, bilateral external ears normal, oropharynx moist, no oral exudates, nose normal. [] Eyes: PERRLA, EOMI, conjunctiva normal, no discharge. [] Neck: Normal range of motion, no tenderness, supple, no stridor. [] Cardiovascular:Heart rate regular rhythm, no murmur [] Lungs & Thorax: Bilateral breath sounds clear to auscultation [] Abdomen: Bowel sounds normal, soft, diffuse tenderness throughout the abdomen, no point tenderness in the right upper quadrant or right lower quadrant, no masses, no pulsatile masses. [] Skin: Warm, dry, no erythema, no rash. [] Back: No tenderness, no CVA tenderness. [] Extremities: No tenderness, no cyanosis, no clubbing, ROM intact, no edema. [] Neurologic: Alert and oriented X 3, normal motor function, normal sensory function, no focal deficits noted. [] Psychologic: Affect normal, judgement normal, mood normal. [] Current Patient Data: Labs: Laboratory Tests Test 06/22/20 19:13 06/22/20 19:25 Urine Collection Type Unknown Urine Color Yellow Urine Clarity Clear Urine pH 5.5 (<5.0-8.0) Urine Specific [place] 1.020 (1.000-1.030) Urine Protein Negative mg/dL (NEG-TRACE) Urine Glucose (UA) Negative mg/dL (NEG) Urine Ketones (Stick) Negative mg/dL (NEG) Urine Blood Trace (NEG) Urine Nitrite Negative (NEG) Urine Bilirubin Negative (NEG) Urine Urobilinogen Dipstick 0.2 mg/dL (0.2 mg/dL) Urine Leukocyte Esterase Small (NEG) Urine RBC 1-2 /HPF (0-2) Urine WBC 1-4 /HPF (0-4) Urine Squamous Epithelial Cells Many /LPF Urine Bacteria Few /HPF (0-FEW) Urine Mucus Marked /LPF Urine Opiates Screen Pos (NEG) Urine Methadone Screen Neg (NEG) Urine Barbiturates Neg (NEG) Urine Phencyclidine Screen Neg (NEG) Urine Amphetamine/Methamphetamine Neg (NEG) Urine Benzodiazepines Screen Neg (NEG) Urine Cocaine Screen Neg (NEG) Urine Cannabinoids Screen Neg (NEG) Urine Ethyl Alcohol Neg (NEG) White Blood Count 7.1 x10^3/uL (4.0-11.0) Red Blood Count 4.74 x10^6/uL (3.50-5.40) Hemoglobin 12.8 g/dL (12.0-15.5) Hematocrit 39.0 % (36.0-47.0) Mean Corpuscular Volume 82 fL (79-100) Mean Corpuscular Hemoglobin 27 pg (25-35) Mean Corpuscular Hemoglobin Concent 33 g/dL (31-37) Red Cell Distribution Width 14.3 % (11.5-14.5) Platelet Count 287 x10^3/uL (140-400) Neutrophils (%) (Auto) 49 % (31-73) Lymphocytes (%) (Auto) 41 % (24-48) Monocytes (%) (Auto) 8 % (0-9) Eosinophils (%) (Auto) 2 % (0-3) Basophils (%) (Auto) 1 % (0-3) Neutrophils # (Auto) 3.5 x10^3/uL (1.8-7.7) Lymphocytes # (Auto) 2.9 x10^3/uL (1.0-4.8) Monocytes # (Auto) 0.6 x10^3/uL (0.0-1.1) Eosinophils # (Auto) 0.1 x10^3/uL (0.0-0.7) Basophils # (Auto) 0.1 x10^3/uL (0.0-0.2) Sodium Level 139 mmol/L (136-145) Potassium Level 3.5 mmol/L (3.5-5.1) Chloride Level 103 mmol/L (98-107) Carbon Dioxide Level 28 mmol/L (21-32) Anion Gap 8 (6-14) Blood Urea Nitrogen 12 mg/dL (7-20) Creatinine 0.8 mg/dL (0.6-1.0) Estimated GFR (Cockcroft-Gault) 89.8 BUN/Creatinine Ratio 15 (6-20) Glucose Level 88 mg/dL (70-99) Calcium Level 8.8 mg/dL (8.5-10.1) Total Bilirubin 0.3 mg/dL (0.2-1.0) Aspartate Amino Transferase (AST) 17 U/L (15-37) Alanine Aminotransferase (ALT) 15 U/L (14-59) Alkaline Phosphatase 76 U/L (46-116) Total Protein 7.4 g/dL (6.4-8.2) Albumin 3.7 g/dL (3.4-5.0) Albumin/Globulin Ratio 1.0 (1.0-1.7) Lipase 61 U/L (73-393) L Ethyl Alcohol Level < 10 mg/dL (0-10) Laboratory Tests 06/22/20 19:25 Laboratory Tests 06/22/20 19:25 Vital Signs: Vital Signs Date Time Temp Pulse Resp B/P (MAP) Pulse Ox O2 Delivery O2 Flow Rate FiO2 06/22/20 19:17 98.0 69 24 153/73 (99) 97 Room Air 98.0 EKG: EKG: [] Radiology/Procedures: Radiology/Procedures: []PROCEDURE: ABDOMEN SUPINE & UPRIGHT 2 view abdomen pelvis HISTORY: 3 days of abdominal pain Portable supine and upright AP views abdomen pelvis 7:49 PM There is air and stool scattered throughout large and small bowel. There is the suggestion of possible thumbprinting in the right lower quadrant. There is no evidence of free air. IMPRESSION: 1. Abnormal bowel gas pattern suggesting a mild ileus. 2. Probable bowel wall edema in the right lower quadrant could be in the distal ileum or ascending colon. This could be inflammatory or infectious. Electronically signed by: Deidre Liu III, MD (06/22/2020 8:12 PM) [facility] DICTATED and SIGNED BY: DEIDRE LIU III, MD DATE: 06/22/[id number] 0 PROCEDURE: CT ABD PELV W/ IV CONTRST ONLY CT SCAN OF THE ABDOMEN AND PELVIS WITH IV CONTRAST. History: Reason: abd pain with abnormal gas pattern/illeus / Spl. Instructions: / History: Comparison:None. Procedure: Contiguous axial images of the abdomen and pelvis were performed after the administration of 75 cc of Isovue 370 IV contrast. Oral contrast: No. Findings: Liver: The intrahepatic biliary tree within the left hepatic lobe is mildly dilated with surrounding inflammation. The gallbladder appears normal. The common bile duct appears normal. Spleen: Unremarkable Pancreas: Unremarkable Adrenal Glands: Unremarkable Kidneys: Small cyst left kidney There is no mass or lymphadenopathy. There is no free air. There is no free fluid. The urinary bladder appears normal. The appendix is normal. There is mild wall thickening of the ascending colon with minimal surrounding inflammation. Impression: 1. Mild wall thickening of ascending colon is likely inflammatory or infectious colitis. 2. There is dilated intrahepatic biliary tree within the left lobe of liver with surrounding inflammation. This is of uncertain etiology. A neoplasm is not excluded. Recommend follow-up multiphase MR examination as an outpatient. End impression PQRS Compliance Statement: One or more of the following individualized dose reduction techniques were utilized for this examination: 1. Automated exposure control 2. Adjustment of the mA and/or kV according to patient size 3. Use of iterative reconstruction technique Electronically signed by: Deidre Liu III, MD (06/22/2020 10:32 PM) [facility] DICTATED and SIGNED BY: DEIDRE LIU III, MD DATE: 06/22/20 [id number] 0 Course & Med Decision Making: Course & Med Decision Making Pertinent Labs and Imaging studies reviewed. (See chart for details) This is a 54-year-old female patient presenting to the ED today with generalized abdominal pain, nausea, symptoms of 4 days, history of constipation. CBC, CMP, lipase-no acute findings. X-rays of the abdomen supine and upright were noted for mild ileus and possible inflammatory or infectious process in the right lower quadrant distal ileum or ascending colon. CT of the abdomen and pelvis was obtained. CT of the abdomen and pelvic was noted for mild wall thickening of ascending colon is likely inflammatory or infectious colitis. Distended Flagyl and Cipro. CT also noted for there is dilated intrahepatic biliary tree within the left lobe of liver with surrounding inflammation. This is of uncertain etiology. A neoplasm is not excluded. Recommend follow-up multiphase MR examination as an outpatient. Patient was discharged home. We discussed regimens to manage chronic constipation. Provided GI for follow-up for both the hepatic lesion as well as constipation. Provided return precautions and discharged in stable condition. Dragon Disclaimer: Dragon Disclaimer: This electronic medical record was generated, in whole or in part, using a voice recognition dictation system. Departure Departure Impression: Primary Impression: Constipation Qualified Codes: K59.00 - Constipation, unspecified Additional Impressions: Colitis Inflammatory disease of liver Disposition: DC HOME SELF CARE/HOMELESS Condition: STABLE Referrals: ADILENE GONZALEZ MD (PCP) follow up next week TONI EUGENE MD follow up next week Patient Instructions: Colitis, Constipation, Adult Additional Instructions: You were evaluated in the emergency room, you have possible colitis. We put you on antibiotics, take them as prescribed. Consider increasing your dietary fiber intake, increase your water intake, exercise, take MiraLAX and a stool softner every day to prevent constipation. Take magnesium citrate anytime you are constipated. You also have inflammation in your liver, follow-up with your doctor as an outpatient for MRI. Scripts Metronidazole (FLAGYL) 500 Mg Tablet 500 MG PO TID, #21 TAB Prov: EBENEZER AGUAYO APRN 06/22/20 Ciprofloxacin Hcl (CIPRO) 500 Mg Tablet 1 TAB PO BID for 7 Days, #14 TAB 0 Refills Prov: EBENEZER AGUAYO APRN 06/22/20 EBENEZER AGUAYO APRN Jun 22, 2020 20:09
--- NOTE | 2020-06-22 20:15 | RAD ---
2 view abdomen pelvis HISTORY: 3 days of abdominal pain Portable supine and upright AP views abdomen pelvis 7:49 PM There is air and stool scattered throughout large and small bowel. There is the suggestion of possible thumbprinting in the right lower quadrant. There is no evidence of free air. IMPRESSION: 1. Abnormal bowel gas pattern suggesting a mild ileus. 2. Probable bowel wall edema in the right lower quadrant could be in the distal ileum or ascending colon. This could be inflammatory or infectious. Electronically signed by: Gavin Zimmerman III, MD (06/22/2020 8:12 PM) [facility]
[2020-06-22] MEDS ORDERED: CONTRAST GIVEN. MC PRN (20:45)
[2020-06-22] MEDS ORDERED: IOHEXOL 300 MG/ML 100ML VIAL. IV ONE (21:00)
--- NOTE | 2020-06-22 22:35 | RAD ---
CT SCAN OF THE ABDOMEN AND PELVIS WITH IV CONTRAST. History: Reason: abd pain with abnormal gas pattern/illeus / Spl. Instructions: / History: Comparison:None. Procedure: Contiguous axial images of the abdomen and pelvis were performed after the administration of 75 cc of Isovue 370 IV contrast. Oral contrast: No. Findings: Liver: The intrahepatic biliary tree within the left hepatic lobe is mildly dilated with surrounding inflammation. The gallbladder appears normal. The common bile duct appears normal. Spleen: Unremarkable Pancreas: Unremarkable Adrenal Glands: Unremarkable Kidneys: Small cyst left kidney There is no mass or lymphadenopathy. There is no free air. There is no free fluid. The urinary bladder appears normal. The appendix is normal. There is mild wall thickening of the ascending colon with minimal surrounding inflammation. Impression: 1. Mild wall thickening of ascending colon is likely inflammatory or infectious colitis. 2. There is dilated intrahepatic biliary tree within the left lobe of liver with surrounding inflammation. This is of uncertain etiology. A neoplasm is not excluded. Recommend follow-up multiphase MR examination as an outpatient. End impression PQRS Compliance Statement: One or more of the following individualized dose reduction techniques were utilized for this examination: 1. Automated exposure control 2. Adjustment of the mA and/or kV according to patient size 3. Use of iterative reconstruction technique Electronically signed by: Gavin Zimmerman III, MD (06/22/2020 10:32 PM) [facility]
[2020-06-22] MEDS ORDERED: CIPR500T94 PO (22:46)
[2020-06-22] MEDS ORDERED: METR500T PO (22:46)
[2020-06-22 23:00] VITALS: BP 123/69
[2020-06-22] MEDS ORDERED: MORPHINE SULFATE 10 MG/ML VIAL. IV ONE (23:00)
== END 2020-06-22 23:18 | disposition home or self-care (01) ==
LOC: ER 18:42
DX: K59.00 Constipation, unspecified (principal); K52.9 Noninfective gastroenteritis and colitis, unspecified; K75.9 Inflammatory liver disease, unspecified; R10.84 Generalized abdominal pain; R11.0 Nausea; K21.9 Gastro-esophageal reflux disease without esophagitis; F17.200 Nicotine dependence, unspecified, uncomplicated; Z90.710 Acquired absence of both cervix and uterus; Z98.51 Tubal ligation status; Z98.890 Other specified postprocedural states; Z88.8 Allergy status to other drugs, medicaments and biological substances
CPT/HCPCS: 36415; 74021; 74177; 80053; 80307; 81001; 83690; 85025; 87086; 96374; 99285; G0480; J2270; Q9967

== ENCOUNTER 2021-01-14 09:55 | Emergency (ER) | payer OTHER ==
[~2021-01-14] VITALS: Ht 149.9 cm; Wt 53.5 kg
[~2021-01-14 09:55] MED LIST changes: +CIPR500T94 PO; +METR500T PO
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
[2021-01-14] MEDS ORDERED: DIPH,PERTUSS(ACELL),TET VAC/PF 0.5 ML SYRINGE. VAX IM ONE (10:45)
[2021-01-14 11:14] VITALS: BP 121/75
--- NOTE | 2021-01-14 11:25 | RAD ---
EXAM: Ct Cervical Spine Without Iv Contrast CLINICAL HISTORY: Hand pain, shoulder pain, neck pain COMPARISON: None available. TECHNIQUE: Helical CT of the cervical spine was performed. Axial, coronal and sagittal reformatted im ages were also performed. PQRS compliance statement - One or more of the following individualized dose reduction techniques wer e utilized for this study: 1. Automated exposure control 2. Adjustment of the mA and/or kV according to patient size 3. Use of iterative reconstruction technique FINDINGS: Vertebral body heights are preserved. Moderate C5-6 disc height loss. No acute fracture. No spondylolisthesis.. Straightening of the normal cervical lordosis. Lung apices are clear. IMPRESSION: 1. No acute fracture or subluxation. 2. Degenerative changes most prominent at C5-6 Electronically signed by: Keron Saucedo MD (01/14/2021 11:23 AM) [facility]
--- NOTE | 2021-01-14 11:26 | RAD ---
EXAM: 3 Views Right Shoulder DATE: 01/14/2021 10:37 AM INDICATION: Reason: Hand pain, shoulder pain, neck pain / Spl. Instructions: / History: COMPARISON: No Prior FINDINGS: There is no evidence for acute fracture or dislocation. AC joint is congruent. Small AC joint osteoph ytes. Humeral head is not high riding. IMPRESSION: 1. No acute fracture or dislocation. Electronically signed by: Keron Saucedo MD (01/14/2021 11:23 AM) [facility]
--- NOTE | 2021-01-14 11:28 | RAD ---
EXAM: 3 views left hand DATE: 01/14/2021 10:37 AM INDICATION: Hand pain, shoulder pain, neck pain COMPARISON: No Prior FINDINGS: No evidence of acute fracture or dislocation. Joint spaces are preserved without significant degenera tive/proliferative change. IMPRESSION: 1. No acute fracture or dislocation. No evidence of acute fracture or dislocation. If there is persi stent clinical concern for fracture, follow-up radiographs in 10-14 days is recommended. Electronically signed by: Keron Saucedo MD (01/14/2021 11:26 AM) [facility]
== END 2021-01-14 11:53 | disposition home or self-care (01) ==
LOC: ER 09:55
DX: M25.511 Pain in right shoulder (principal); G89.11 Acute pain due to trauma; M54.2 Cervicalgia; M79.642 Pain in left hand; M25.561 Pain in right knee; K21.9 Gastro-esophageal reflux disease without esophagitis; E03.9 Hypothyroidism, unspecified; F17.200 Nicotine dependence, unspecified, uncomplicated; Z88.8 Allergy status to other drugs, medicaments and biological substances; V49.49XA Driver injured in collision with other motor vehicles in traffic accident, initial encounter; Y93.89 Activity, other specified; Y92.488 Other paved roadways as the place of occurrence of the external cause; Y99.8 Other external cause status
CPT/HCPCS: 72125; 73030; 73130; 90471; 90715; 99284-25

== ENCOUNTER 2021-03-19 21:57 | Emergency (ER) | payer OTHER ==
[~2021-03-19] VITALS: Ht 149.9 cm; Wt 56.4 kg
[2021-03-20 01:00] VITALS: BP 143/80
[2021-03-20] MEDS ORDERED: ORPH100T PO (01:41)
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
== END 2021-03-20 01:21 | disposition home or self-care (01) ==
LOC: ER 21:57
DX: M54.6 Pain in thoracic spine (principal); M54.2 Cervicalgia; K21.9 Gastro-esophageal reflux disease without esophagitis; E03.9 Hypothyroidism, unspecified; F17.200 Nicotine dependence, unspecified, uncomplicated; Z90.710 Acquired absence of both cervix and uterus; Z98.51 Tubal ligation status; Z88.8 Allergy status to other drugs, medicaments and biological substances
CPT/HCPCS: 99283

== ENCOUNTER → 2021-08-17 | Outpatient (CLI) | payer OTHER ==
[~2021-08-17] MED LIST changes: +CYCL10TA19 PO; -CYCL10TA2 PO; +ORPH100T PO
--- NOTE | 2021-08-18 10:32 | RAD ---
XR EXAM OF ANKLE_LEFT 3V History: Fall, left ankle pain Comparison: None. Technique: 3 views of the left ankle Findings: Osseous mineralization is normal. There is a comminuted fracture of the calcaneus with approximately 5 mm displacement plantar aspect and intra-articular involvement of the subtalar joints. The ankle mo rtise and talar dome are intact. Diffuse ankle swelling. Impression: 1. Comminuted intra-articular calcaneus fracture. Electronically signed by: Phil Zhu MD (08/18/2021 10:30 AM) [id number]
--- NOTE | 2021-08-18 10:38 | RAD ---
XR RIBS 2 VIEWS History: Fall without a pop, rib pain. Comparison: None. Technique: PA chest with oblique views of the right ribs and oblique view of the left ribs Findings: The lungs are adequately and symmectrically inflated. No airspace consolidation, pleural effusion or pneumothorax. The cardiomediastinal silhoutte and pulmonary vasculature are within normal limits. See n on the right oblique view only, there is suggestion of a lucency through the posterior right 10th r ib without displacement. Soft tissues are unremarkable. Impression: 1. Question nondisplaced posterior right 10th rib fracture. Correlate with site of pain. 2. No airspace consolidation, pleural effusion or pneumothorax. Electronically signed by: Phil Zhu MD (08/18/2021 10:35 AM) [id number]
== END ==
LOC: RAD 14:12
PROVIDERS: ATTEND Family Medicine
DX: S92.002A Unspecified fracture of left calcaneus, initial encounter for closed fracture (principal); M25.472 Effusion, left ankle; W19.XXXA Unspecified fall, initial encounter; Y93.89 Activity, other specified; Y92.89 Other specified places as the place of occurrence of the external cause; Y99.8 Other external cause status
CPT/HCPCS: 71110; 73610

== ENCOUNTER → 2021-09-02 | Outpatient (CLI) | payer OTHER ==
--- NOTE | 2021-09-02 12:53 | RAD ---
CT of left lower extremity without contrast dated 09/02/2021. COMPARISON: X-ray dated 09/02/2021. INDICATION: Pain after injury. Evaluate fracture. TECHNIQUE: Routine axial imaging of the left foot and ankle performed with thin cut coronal and sagittal reconst ruction. 3-D rotational reconstructions were also acquired. One or more of the following individualized dose reduction techniques were utilized for this examinat ion: 1. Automated exposure control 2. Adjustment of the mA and/or kV according to patient size 3. Use of iterative reconstruction technique. FINDINGS: There is a comminuted fracture of the calcaneus with fracture lines extending to the posterior subtal ar joint fracture lines extend to the middle facet and anterior facet. Fracture lines also extend to the calcaneocuboid joint. There is as planus deformity with loss of Boehler's angle. The talus is int act. Navicular bone and cuneiform bones are intact. No metatarsal fracture. Obliquely oriented defect through the distal fibula appears incomplete. No displacement or periostiti s. The distal tibia is intact. Talar dome is intact. There is patchy edema within the subcutaneous tissues. The ligaments and tendons are not well evaluat ed based on technique. No definite ankle joint effusion. There is likely a small effusion at the post erior subtalar joint. IMPRESSION: 1. Comminuted intra-articular fracture of the calcaneus. Please see above report for details. 2. There is an incomplete obliquely oriented defect of the distal fibula which likely represent subac kacie or remote fracture. 3. Diffuse soft tissue swelling with small effusion at the posterior subtalar joint. Electronically signed by: Cedric Hanks MD (09/02/2021 12:51 PM) [id number]
== END ==
LOC: CT 11:27
PROVIDERS: ATTEND Podiatrist
DX: S92.062A Displaced intraarticular fracture of left calcaneus, initial encounter for closed fracture (principal); R60.0 Localized edema; M79.89 Other specified soft tissue disorders; M25.475 Effusion, left foot; X58.XXXA Exposure to other specified factors, initial encounter; Y93.89 Activity, other specified; Y92.89 Other specified places as the place of occurrence of the external cause; Y99.8 Other external cause status; Z20.822 Contact with and (suspected) exposure to COVID-19
CPT/HCPCS: 73700; U0003